=== PATIENT | female | born 1945 | race Hispanic/Latino ===

== ENCOUNTER → 2019-08-28 | Outpatient (CLI) | payer MEDICARE ==
--- NOTE | 2019-08-28 11:57 | Diagnostic Imaging Report ---
Left knee MRI without contrast. History: Knee pain. Decreased range of motion. Pain not responding to conservative management. Comparison: None. Technique: Multiplanar multi-sequence MRI of the knee without contrast. Findings: Medial compartment: Obliquely oriented undersurface tear involving the posterior horn of the medial meniscus best seen on coronal image 12. The medial compartmental articular cartilage surfaces are slightly thinned with regions of fraying and fissuring. Small peripheral marginal osteophytes. The medial collateral ligament complex is intact. Lateral compartment: Obliquely oriented undersurface tear involving the posterior horn of the lateral meniscus best seen on sagittal image 9. The lateral compartmental articular cartilage surfaces are slightly thinned with regions of fraying and fissuring. The lateral collateral ligament complex is intact. Intercondylar notch: The ACL and PCL are intact. Patellofemoral compartment: Mild articular cartilage fraying and fissuring in the patellofemoral compartment. Extensor mechanism: The quadriceps and patellar tendons are normal. Other findings: There is a joint effusion and synovitis. There is no acute fracture, subluxation or avascular necrosis. IMPRESSION: Obliquely oriented undersurface tears involving the posterior horns of the medial and lateral meniscus with mild degenerative arthrosis. Mild degenerative arthrosis in the patellofemoral compartment. Signed by: Dr. Joe Ireland M.D. on 08/28/2019 11:53 AM
== END ==
LOC: MRI 10:40
PROVIDERS: ATTEND Family Medicine
DX: M25.562 Pain in left knee (principal)

== ENCOUNTER → 2019-09-17 | Day surgery (SDC) | payer MEDICARE ==
[2019-09-15 12:33] LABS: BASOPHILS % 0.4 % (0.0-1.0); EOSINOPHILS # (AUTO) 0.2 (0.0-0.4); EOSINOPHILS % 2.3 % (0.0-6.0); HEMATOCRIT 40.6 % (34.2-44.1); HEMOGLOBIN 13.5 g/dL (12.0-16.0); LYMPHOCYTES # (AUTO) 1.5 (1.0-3.2); LYMPHOCYTES % 17.4 % (18.0-39.1); MEAN CORPUSCULAR HEMOGLOBIN 29.3 pg (28-32); MEAN CORPUSCULAR HGB CONC 33.3 g/dL (31-35); MEAN CORPUSCULAR VOLUME 88.3 fL (81-99); MONOCYTES # (AUTO) 0.6 (0.2-0.8); MONOCYTES % 6.8 % (4.4-11.3); NEUTROPHILS # (AUTO) 6.1 (2.1-6.9); NEUTROPHILS % 72.5 % (38.7-80.0); PLATELET COUNT 267 x10e3/uL (140-360); RED CELL DISTRIBUTION WIDTH 13.5 % (11.7-14.4)
--- NOTE | 2019-09-15 13:24 | Diagnostic Imaging Report ---
EXAMINATION: CHEST 2 VIEWS INDICATION: Pre-operative COMPARISON: None FINDINGS: LINES/TUBES:None LUNGS:The lungs are well-inflated. No focal consolidation or pulmonary edema. Mild bibasilar subsegmental atelectasis. PLEURA:No pleural effusion or pneumothorax. MEDIASTINUM:The cardiomediastinal silhouette appears normal in size and shape. BONES/SOFT TISSUES:No acute osseous injury. ABDOMEN:No free air under the diaphragm. IMPRESSION: No focal pneumonia or pulmonary edema. Signed by: Rod Velasco MD on 09/15/2019 1:21 PM
[~2019-09-17] MED LIST: ACETAMINOPHEN 1000 MG/100 ML IV ONE; ALENDRONATE SOD70 MG PO; ATORVASTATIN CA20 MG PO; BUPIVACAINE 0.5%/EPI 30 ML SDV INJ ONE; CEFAZOLIN SOD 1 GM/NS 50ML 100 ML IV ONE; DEXAMETHASONE SOD PHOS INJ 4 MG/ML VIAL ONE; FENTANYL CITRATE/PF 100MCG/2 ML INJ ONE; LEVOTHYROXINE75 MCG PO; ONDANSETRON HCL INJ 2MG/ML 2ML 2 MG/ML VIAL ONE; PROPOFOL IV EMULSION 10 MG/ML 20 ML VIAL ONE; SEVOFLURANE INHAL SOLN 250 ML PEN BTL ONE
--- OUTSIDE RECORDS SUMMARY | 2019-09-17 06:22 | XMS REPORT ---
[facility] Address Unknown Phone Unavailable Care Team Providers Care Pantograph Transferrer Name Role Phone JANNETTE IVAN Unavailable Unavailable RICHELLE FIGUEROA Unavailable Unavailable Problems This patient has no known problems. Allergies, Adverse Reactions, Alerts This patient has no known allergies or adverse reactions. Medications This patient has no known medications. Results Test Description Test Time Test Comments Text Results Atomic Results Result Comments CHEST 2 VIEWS 2019-09-15 13:20:00 [place] [address] Patient Name: GIGI GONZALEZ MR #: [id number] : 1945 Age/Sex: 74/F Req #: [id number] Adm Physician: Ordered by: JANNETTE IVAN MD Report #: [id number] Location: OR Room/Bed: Procedure: [id number] DX/CHEST 2 VIEWS Exam Date: 09/15/19 Exam Time: 1215 REPORT STATUS: Signed EXAMINATION: CHEST 2 VIEWS INDICATION: Pre-operative COMPARISON: None FINDINGS: LINES/TUBES:None LUNGS:The lungs are well-inflated. No focal consolidation or pulmonary edema. Mild bibasilar subsegmental atelectasis. PLEURA:No pleural effusion or pneumothorax. MEDIASTINUM:The cardiomediastinal silhouette appears normal in size and shape. BONES/SOFT TISSUES:No acute osseous injury. ABDOMEN:No free air under the diaphragm. IMPRESSION: No focal pneumonia or pulmonary edema. Signed by: Yossi Velasco MD on 09/15/2019 1:21 PM Dictated By: YOSSI VELASCO MD 1321 Transcribed By: FRANNY on 09/15/19 1321 COPY TO: JANNETTE IVAN MD MRI KNEE LEFT WO 2019-08-28 11:42:00 [place] [address] Patient Name: GIGI GONZALEZ MR #: [id number] : 1945 Age/Sex: 74/F Req #: [id number] Adm Physician: Ordered by: RICHELLE FIGUEROA DO Report #: [id number] Location: MRI Room/Bed: Procedure: [id number] MRI/MRI KNEE LEFT WO Exam Date: Exam Time: REPORT STATUS: Signed Left knee MRI without contrast. History: Knee pain. Decreased ran ge of motion. Pain not responding to conservative management. Comparison: None. Technique: Multiplanar multi-sequence MRI of the knee without contrast. Findings: Medial compartment: Obliquely oriented undersurface tear involving the posterior horn of the medial meniscus best seen on coronal image 12. The medial compartmental articular cartilage surfaces are slightly thinned with regions of fraying and fissuring. Small peripheral marginal osteophytes. The medial collateral ligament complex is intact. Lateral compartment: Obliquely oriented undersurface tear involving the posterior horn of the lateral meniscus best seen on sagittal image 9. The lateral compartmental articular cartilage surfaces are slightly thinned with regions of fraying and fissuring. The lateral collateral ligament complex is intact. Intercondylar notch: The ACL and PCL are intact. Patellofemoral compartment: Mild articular cartilage fraying and fissuring in the patellofemoral compartment. Extensor mechanism: The quadriceps and patellar tendons are normal. Other findings: There is a joint effusion and synovitis. There is no acute fracture, subluxation or avascular necrosis. IMPRESSION: Obliquely oriented undersurface tears involving the posterior horns of the medial and lateral meniscus with mild degenerative arthrosis. Mild degenerative arthrosis in the patellofemoral compartment. Signed by: Dr. Joe Ireland M.D. on 08/28/2019 11:53 AM Dictated By: JOE IRELAND MD, MD 1153 Transcribed By: FRANNY on 08/28/19 1153 COPY TO: RICHELLE FIGUEROA DO DIAG MAMM LEFT TJ CAD DIGITAL 2019-04-08 09:39:59 - DIAG MAMM LEFT TJ CAD DIGITALUNILATERAL LEFT DIGITAL DIAGNOSTIC MAMMOGRAM 3D/2D WITH CAD: 04/08/2019CLINICAL: Recall from screening. Digital breast tomosynthesis was performed in addition to routine CC and MLO views. Current mammographic images were evaluated by either a [employer] M-Vu or a [employer] ImageChecker CAD (computer aided detection system). Comparison is made to exams dated 02/19/2019 [facility] mogram, 02/15/2018 mammogram, and 02/02/2017 mammogram - [facility]- . There are scattered fibroglandular tissues in the left breast. Persistent two to three oval circumscribed low-density subcentimeter benign-appearing masses at 6 o'clock, middle depth. No suspicious architectural distortion, malignant type calcification, or lymph node abnormality detected. INCOMPLETE ASSESSMENT: ADDITIONAL IMAGING EVALUATION RECOMMENDEDPersistent oval circumscribed low-density subcentimeter benign-appearing masses at 6 o'clock, middle depth. Targeted and survey left breast ultrasound to follow.- BREAST ULTRASOUND LEFTULTRASOUND OF LEFT BREAST: 04/08/2019Comparison is made to exams dated 02/19/2019 mammogram, 02/15/2018 mammogram, and 02/02/2017 mammogram - [facility]-. Color flow and real-time ultrasound of the left breast were performed. Smart scale images of the real-time examination were reviewed. The breast tissue has scattered fibroglandular background echotexture. Targeted left breast ultrasound at 6 o'clock, 2 cm from the nipple, demonstrates a 4 mm simple cyst along with adjacent 2-3 mm complicated cysts correlating with the mammographic masses. No suspicious sonographic abnormality. No axillary lymphadenopathy was seen.IMPRESSION: PROBABLY BENIGN - FOLLOW-UP RECOMMENDEDSimple and complicated cysts in the left breast at 6 o'clock. Findings are probably benign, BI-RADS 3. A follow-up mammogram and an ultrasound in 6 months is recommended to demonstrate stability. Cedric Churchill M.D. ss/:04/08/2019 09:39:59 copy to: Lucy Khan MD, ph: [phone], fax: [phone] Technologist: Eveline CEDENO, [facility]-letter sent: Short Term Follow Up Mammogram BI-RADS: 0 Indeterminate Ultrasound BI-RADS: 3 Probably benign BREAST ULTRASOUND LEFT 2019-04-08 09:39:59 - DIAG MAMM LEFT TJ CAD DIGITALUNILATERAL LEFT DIGITAL DIAGNOSTIC MAMMOGRAM 3D/2D WITH CAD: 04/08/2019CLINICAL: Recall from screening. Digital breast tomosynthesis was performed in addition to rou kassandra CC and MLO views. Current mammographic images were evaluated by either a [employer] M-Vu or a [employer] ImageChecker CAD (computer aided detection system). Comparison is made to exams dated 02/19/2019 mammogram, 02/15/2018 mammogram, and [facility]. There are scattered fibroglandular tissues in the left breast. Persistent two to three oval circumscribed low-density subcentimeter benign-appearing masses at 6 o'clock, middle depth. No suspicious architectural distortion, malignant type calcification, or lymph node abnormality detected. INCOMPLETE ASSESSMENT: MEIR TIONAL IMAGING EVALUATION RECOMMENDEDPersistent oval circumscribed low-density subcentimeter benign-appearing masses at 6 o'clock, middle depth. Targeted and survey left breast ultrasound to follow.- BREAST ULTRASOUND LEFTULTRASOUND OF LEFT BREAST: 04/08/2019Comparison is made to exams dated 02/19/2019 mammogram, 02/15/2018 mammogram, and [facility]. Color flow and real-time ultrasound of the left breast were performed. Smart scale images of the real-time examination were reviewed. The breast tissue has scattered fibroglandular background echotexture. Targeted left breast ultrasound at 6 o'clock, 2 cm from the nipple, demonstrates a 4 mm simple cyst along with adjacent 2-3 mm complicated cysts correlating with the mammographic masses. No suspicious sonographic abnormality. No axillary lymphadenopathy was seen.IMPRESSION: PROBABLY BENIGN - FOLLOW-UP RECOMMENDEDSimple and complicated cysts in the left breast at 6 o'clock. Findings are probably benign, BI-RADS 3. A follow-up mammogram and an ultrasound in 6 months is recommended to demonstrate stability. Cedric Churchill M.D. ss/:04/08/2019 09:39:59 copy to: Lucy Khan MD, ph: [phone], fax: [phone] Technologist: Eveline CEDENO, [facility]-letter sent: Short Term Follow Up Mammogram BI-RADS: 0 Indeterminate Ultrasound BI-RADS: 3 Probably benign SCR MAMM BILATERAL TJ CAD DIGITAL 2019-02-19 13:21:07 - SCR MAMM BILATERAL TJ CAD DIGITALBILATERAL DIGITAL SCREENING MAMMOGRAM 3D/2D WITH CAD: 02/19/2019CLINICAL: Asymptomatic. Digital breast tomosynthesis was performed in addition to routine CC and MLO views. Current mammographic images were evaluated by either a [employer] M-Vu or a [employer] ImageChecker CAD (computer aided detection system). Comparison is made to exams dated 02/15/2018 mammogram, 2016 mammogram - [facility]-, 08/25/2016 mammogram - [facility], and 04/01/2015 mammogram - [facility]-. There are scattered fibroglandular tissues in both breasts. A 4-5 mm focal asymmetries in the left breast at 6 o'clock, approximately 5 cm from the nipple. No suspicious mass, architectural distortion, malignant type calcification, or lymph node abnormality detected in the right breast. IMPRESSION: INCOMPLETE ASSESSMENT: ADDITIONAL IMAGING EVALUATION RECOMMENDEDTwo focal asymmetries in the left breast at 6 o'clock, middle depth. Spot compression tomosynthesis and possible ultrasound are recommended at this time. Cedric Churchill M.D. ss/:02/19/2019 13:21:07 copy to: Lucy Khan MD, ph: [phone], fax: [phone] Technologist: Jaiden CEDENO, [facility]-FWletter sent: Additional Imaging Mammogram BI-RADS: 0 Indeterminate
--- NOTE | 2019-09-17 07:10 | NUR ---
SPIRITUAL CARE - Pre-Surgery Assessment: Pt in bed. Pt's daughter and friend at bedside. Pt reported supportive attention from family and friends. Intervention: I provided pastoral presence, hospitality, sympathetic listening, and prayer. I acquainted pt with availability of validation intern while hospitalized. Outcome: Pt expressed appreciation for visit. No need for follow up indicated at this time. FELTON SALAS Arabic Linguist Spiritual Care Department O: [phone] Pager: [phone] ([phone] number calling from)
[2019-09-17 10:50] VITALS: BP 105/55
--- NOTE | 2019-09-18 17:29 | Operative Report ---
DATE OF PROCEDURE: 09/17/2019 SURGEON: Vineet Bocanegra MD PREOPERATIVE DIAGNOSES: 1. Left knee medial meniscus tear. 2. Left knee lateral meniscus tear. 3. Left knee degenerative joint disease of the knee. POSTOPERATIVE DIAGNOSES: 1. Left knee medial meniscus tear. 2. Left knee lateral meniscus tear. 3. Left knee degenerative joint disease of the knee. OPERATION/PROCEDURES PERFORMED: The patient underwent left knee exam under anesthesia, left knee arthroscopy, left knee partial medial meniscectomy, left knee partial lateral meniscectomy and a chondroplasty of the patella, the trochlear, the medial tibial plateau and the lateral tibial plateau. ADJUNCT SPANISH INSTRUCTOR: There was no sales assistant institutional sales. ANESTHESIA: General endotracheal intubation anesthesia. IV FLUIDS: Per the anesthesia record. BRIEF DESCRIPTION OF THE PATIENT'S OPERATIVE PROCEDURE: Ms. Luna was taken to the operating room and placed in the supine position on the operating table. Following induction of general anesthesia as well as endotracheal intubation, the patient's left lower extremity was examined under anesthesia. She was found to have a mild effusion within the knee joint, but otherwise ligamentously stable knee. The patient's lower extremity was prepped and draped in standard surgical fashion. A 2-port technique was used to provide this patient's arthroscopic evaluation of the knee joint. Examination of suprapatellar pouch and medial and lateral gutters found no evidence of loose bodies. There was no evidence of chondromalacia of the patellar and trochlear surfaces. The scope was advanced to the medial compartment and there was a tear in the posterior horn of the medial meniscus. 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 A combination of biting forceps and a motorized shaver were used to resect the torn portion of meniscus. A chondroplasty of the medial tibial plateau was performed at this time. Scope was then advanced to the intercondylar notch and the anterior cruciate ligament was identified and found to be intact. Scope was then advanced to the lateral compartment and there was a tear of the midsubstance of the lateral meniscus. There was also a chondromalacia of the lateral tibial plateau. A combination of biting forceps and motorized shaver were used to resect the torn portion of the meniscus. Chondroplasties of the lateral tibial plateau performed at this time. The scope was then placed in suprapatellar pouch and a chondroplasty of the patella and trochlea performed. The knee was deflated with sterile normal saline. Each of the portal sites were closed using 4-0 nylon suture. The portal sites as well as knee itself were injected with 0.5% Marcaine with epinephrine. Sterile dressings were applied. The patient was awakened to the postanesthesia care in stable condition. MD OTILIA Alva/BRENDAN /[id number]
== END | disposition home or self-care (01) ==
LOC: OR 06:18
PROVIDERS: ATTEND Specialist
DX: S83.222A Peripheral tear of medial meniscus, current injury, left knee, initial encounter (principal); S83.262A Peripheral tear of lateral meniscus, current injury, left knee, initial encounter; M17.12 Unilateral primary osteoarthritis, left knee; E03.9 Hypothyroidism, unspecified; Z01.810 Encounter for preprocedural cardiovascular examination; Z01.812 Encounter for preprocedural laboratory examination; Z01.811 Encounter for preprocedural respiratory examination; M81.0 Age-related osteoporosis without current pathological fracture
CPT/HCPCS: 36415; 71046; 85025; 93005; J0690; J1100; J2405; J3010

== ENCOUNTER → 2021-04-19 | Outpatient (CLI) | payer MEDICARE ==
[~2021-04-19] MED LIST changes: -ACETAMINOPHEN 1000 MG/100 ML IV ONE; -BUPIVACAINE 0.5%/EPI 30 ML SDV INJ ONE; -CEFAZOLIN SOD 1 GM/NS 50ML 100 ML IV ONE; -DEXAMETHASONE SOD PHOS INJ 4 MG/ML VIAL ONE; -FENTANYL CITRATE/PF 100MCG/2 ML INJ ONE; -ONDANSETRON HCL INJ 2MG/ML 2ML 2 MG/ML VIAL ONE; -PROPOFOL IV EMULSION 10 MG/ML 20 ML VIAL ONE; -SEVOFLURANE INHAL SOLN 250 ML PEN BTL ONE
== END ==
LOC: MRI 10:20
PROVIDERS: ATTEND Family Medicine
DX: M23.306 Other meniscus derangements, unspecified meniscus, right knee (principal)

== ENCOUNTER → 2021-05-04 | Day surgery (SDC) | payer MEDICARE ==
[2021-04-29 13:20] LABS: BASOPHILS % 0.3 % (0.0-1.0); EOSINOPHILS # (AUTO) 0.2 (0.0-0.4); EOSINOPHILS % 3.2 % (0.0-6.0); HEMOGLOBIN 12.7 g/dL (12.0-16.0); LYMPHOCYTES % 28.6 % (18.0-39.1); MEAN CORPUSCULAR HEMOGLOBIN 29.1 pg (28-32); MEAN CORPUSCULAR HGB CONC 33.4 g/dL (31-35); MONOCYTES # (AUTO) 0.6 (0.2-0.8); MONOCYTES % 8.6 % (4.4-11.3); NEUTROPHILS # (AUTO) 4.1 (2.1-6.9); PLATELET COUNT 275 x10e3/uL (140-360); RED BLOOD COUNT 4.37 x10e6/uL (3.6-5.1); RED CELL DISTRIBUTION WIDTH 13.4 % (11.7-14.4)
[~2021-05-04] MED LIST changes: +BUPIVACAINE HCL 0.5% INJ 30 ML VIAL INJ ONE; +DEXAMETHASONE SOD PHOS INJ 4 MG/ML VIAL ONE; +FENTANYL CITRATE/PF 100MCG/2 ML INJ ONE; +KETOROLAC TROMETHAMINE 30 MG/ML VIAL ONE; +LIDOCAINE HCL 2% JELLY 5 ML TUBE ONE; +LIDOCAINE HCL 2% LOCAL INJ 5 ML SDV VIAL INJ ONE; +ONDANSETRON HCL INJ 2MG/ML 2ML 2 MG/ML VIAL ONE; +POVIDONE IODINE 0.05% 0.05 % ML PO ONE; +PROPOFOL IV EMULSION 10 MG/ML 20 ML VIAL ONE; +SEVOFLURANE INHAL SOLN 250 ML PEN BTL ONE; +SODIUM CHLORIDE 0.9% 50ML 100 ML ONE; +TYLENOL # 31 EA PO
[2021-05-04 10:30] VITALS: BP 118/54
== END | disposition home or self-care (01) ==
LOC: OR 05:30
PROVIDERS: ATTEND Specialist
DX: S83.221A Peripheral tear of medial meniscus, current injury, right knee, initial encounter (principal); S83.261A Peripheral tear of lateral meniscus, current injury, right knee, initial encounter; M17.11 Unilateral primary osteoarthritis, right knee; Z01.810 Encounter for preprocedural cardiovascular examination; Z01.812 Encounter for preprocedural laboratory examination; Z01.818 Encounter for other preprocedural examination
CPT/HCPCS: 29875; 29880; 36415; 71046; 85025; 93005; J0690; J1100; J1885; J2001 ×2; J2405; J2704; J3010

== ENCOUNTER 2021-05-27 08:00 | Outpatient (RCR) | payer MEDICARE ==
[~2021-05-27 08:00] MED LIST changes: -BUPIVACAINE HCL 0.5% INJ 30 ML VIAL INJ ONE; -DEXAMETHASONE SOD PHOS INJ 4 MG/ML VIAL ONE; -FENTANYL CITRATE/PF 100MCG/2 ML INJ ONE; -KETOROLAC TROMETHAMINE 30 MG/ML VIAL ONE; -LIDOCAINE HCL 2% JELLY 5 ML TUBE ONE; -LIDOCAINE HCL 2% LOCAL INJ 5 ML SDV VIAL INJ ONE; -ONDANSETRON HCL INJ 2MG/ML 2ML 2 MG/ML VIAL ONE; -POVIDONE IODINE 0.05% 0.05 % ML PO ONE; -PROPOFOL IV EMULSION 10 MG/ML 20 ML VIAL ONE; -SEVOFLURANE INHAL SOLN 250 ML PEN BTL ONE; -SODIUM CHLORIDE 0.9% 50ML 100 ML ONE
== END 2021-05-28 ==
LOC: PT 08:00
PROVIDERS: ATTEND Specialist
DX: M17.11 Unilateral primary osteoarthritis, right knee (principal); S83.221D Peripheral tear of medial meniscus, current injury, right knee, subsequent encounter; S83.261D Peripheral tear of lateral meniscus, current injury, right knee, subsequent encounter

== ENCOUNTER 2021-05-31 07:59 | Outpatient (RCR) | payer MEDICARE | END 2021-06-28 | LOC: PT 07:59 | PROVIDERS: ATTEND Specialist | DX: M17.11 Unilateral primary osteoarthritis, right knee (principal); S83.221D Peripheral tear of medial meniscus, current injury, right knee, subsequent encounter; S83.261D Peripheral tear of lateral meniscus, current injury, right knee, subsequent encounter ==